=== PATIENT | female | born 1985 ===

== ENCOUNTER → 2020-10-02 | Outpatient (CLI) | payer OTHER ==
--- NOTE | 2020-10-02 08:50 | RAD ---
EXAM: OBSTETRIC ULTRASOUND. HISTORY: Assess cervical length. COMPARISON: None. FINDINGS: Sonographic evaluation of the uterus, fetus and maternal pelvis was performed. There is a single fetus in vertex presentation. heart rate is 139 bpm. Estimated gestational ag e based on measurements is 30 weeks 3 days. Head circumference, biparietal diameter, abdominal circum ference and femur length are commensurate. Estimated weight is 1468 g, at 52nd percentile. The placenta is anterior. There is no evidence of placenta previa. Amniotic fluid volume appears norm al with amniotic fluid index 21.9 cm. There is funneling at the internal os. Cervical length is 1.0 c m. The stomach and bladder are visualized. The heart is four-chamber, not well demonstrated on static im ages. There is no hydrocephalus. The maternal adnexa are obscured by positioning currently. IMPRESSION: 1. Funneling at the internal os. Cervical length 1.0 cm. Ongoing management is recommended. 2. Single fetus in vertex presentation. heart rate 139 bpm. Estimated gestational age based on measurements 30 weeks 3 days. Electronically signed by: Olive Hogan MD (10/02/2020 8:48 AM) [id number]
== END ==
LOC: US 07:56
PROVIDERS: ATTEND Obstetrics & Gynecology
DX: Z34.93 Encounter for supervision of normal pregnancy, unspecified, third trimester (principal); Z3A.30 30 weeks gestation of pregnancy
CPT/HCPCS: 76805; 76817